=== PATIENT | female | born 1955 | race Caucasian/White ===

== ENCOUNTER 2022-05-25 14:57 | Emergency (ER) | payer MEDICARE, SELFPAY ==
[2022-05-25 15:05] VITALS: BP 140/84; PULSE 78; RESP 20; TEMP 36.2; O2SAT 96; BMI 42.1
--- NOTE | 2022-05-25 15:20 | ED.NURSE ---
Pt resumed use of home oxygen supply at 3L NC while speaking with .
--- NOTE | 2022-05-25 15:22 | ED.NURSE ---
Pt requesting to use hospital O2 while here. Pt came from home with home O2 applied at 3L NC. O2 satting well at ~97% on arrival. Pt trialed down to RA, stable at ~93% on RA. Pt states that even if her O2 sats are good, I'm going to put my oxygen back on if I get uncomfortable. Continues to be on RA at this time.
--- NOTE | 2022-05-25 15:35 | ED.NURSE ---
Pt resumed use of home oxygen supply at 3L NC while speaking with .
--- NOTE | 2022-05-25 15:40 | CRLHL7_ITS ---
For Patients: As a result of the Century Cures Act, medical imaging exams and procedure reports are released immediately into your electronic medical record. You may view this report before your referring provider. If you have questions, please contact your health care provider. INDICATION: Left upper quadrant pain. Question constipation. TECHNIQUE: Supine views of the abdomen, total of 3 images. COMPARISON : None. FINDINGS / IMPRESSION : The bowel gas pattern is nonobstructive. EXTENSIVE volume of colonic stool, localized to the descending and rectosigmoid colon. Findings consistent with constipation. No pathologic abdominal calcifications. Embolization coils noted in the central abdomen. Cholecystectomy surgical clips in the upper right abdomen. Dictated by Billy Blackburn MD @ 05/25/2022 4:36:59 PM Dictated by: Billy Blackburn MD @ 05/25/2022 16:37:07 (Electronically Signed)
[2022-05-25 15:45] VITALS: O2SAT 96
--- NOTE | 2022-05-25 15:45 | ED.ABDPAIN ---
HPI - Abdominal Pain General Chief Complaint: Abdominal Pain Stated Complaint: Hard time breathing, Sharp pain when breathing Time Seen by Provider: 05/25/22 15:18 History of Present Illness HPI narrative: 67-year-old woman presenting to the emergency department accompanied by her [id number] with complaint of left side/abdominal pain. It is sharp in nature and pleuritic and worse with movements as well. She does not recall specific injury. Interview is a pleasant challenge due to tangential conversation, uncertain medical history, mild irritability and agitation and brunson positive review of systems. Ms. Grayson describes a history of needing oxygen. Arise with a concentrator and is off of oxygen while we try to see what her baseline is. During our interview she is satting about 91%. She is mildly labored and tachypneic. She asks shortly to go back on oxygen after transitioning up and down in the bed which returns for promptly to 94-96%. Apparently is typically on 2 L of oxygen for chronic hypoxia particularly exertional fatigue/hypoxia. She initially says that this is related to her neuropathy. It sounds as though there must be some diagnosis of congestive heart failure she notes she had it filled lower lungs with fluid before. She apparently has not much left the bed over the last 2 weeks with recurrent diarrhea, vomiting and nose bleed as a source of blood that had been concerning at 1 point in the bed. The diarrhea and vomiting apparently has stopped, as has any bleeding, and she has not actually had a bowel movement for 3 days. This left side area pain began about 2 days ago. She has not seen any rash. There was no trauma. She does have Lidoderm patches but has not tried home in this area. She is regularly worrying and rubbing the area of pain in question at the left anterolateral rib margin and surrounding area. She also notes a history of 2 aneurysms Related Data Home Medications Medication Instructions Recorded Confirmed albuterol sulfate 2.5 mg/3 mL mg 05/25/22 (0.083 %) solution for nebulization amlodipine 5 mg tablet mg 05/25/22 atorvastatin 20 mg tablet mg 05/25/22 fluticasone fur. 100 mcg-umeclid inhalation 05/25/22 62.5 mcg-vilant 25 mcg inhalat.powder (Trelegy Ellipta) furosemide 40 mg tablet mg 05/25/22 insulin aspart U-100 100 unit/mL subcut 05/25/22 (3 mL) subcutaneous pen insulin degludec 200 unit/mL (3 unit subcut 05/25/22 mL) subcutaneous pen (Tresiba FlexTouch U-200 insulin) pregabalin 50 mg capsule mg 05/25/22 Previous Rx's Medication Instructions Recorded cefdinir 300 mg capsule 300 mg PO Q12H 9 days #18 caps 05/25/22 Allergies Allergy/AdvReac Type Severity Reaction Status Date / Time No Known Drug Allergies Allergy Verified 05/25/22 15:11 Review of Systems Narrative 10+ point review of systems is done and challenged by brunson positive nature. Exam Narrative: Exam Narrative: Pleasantly disagreeable at times. Tangential. Cranial nerves 2-12 intact. Fully alert. Little agitated, distracted. Lungs with equal expansion excursion. Is splinting a little bit with deep inspiratory effort. Lungs actually appear to be clear. Mildly labored in breathing Oropharynx is dry. I do not appreciate any blood dried or otherwise apparent at the naris. Neck is supple without lymphadenopathy. Cardiovascular with regular rate and rhythm. Distant. Extremities are without edema. No tenderness to palpation. Abdomen is overweight soft normoactive bowel sounds. She is quite tender at the left anterior lateral rib margin and a up the ribs in that area as well as into the abdomen in that area. No masses are appreciated. No HSM. Shortly after initial exam she is requesting to return to her oxygen concentrator. I had assessed her initially with oxygen off Const: Vital Signs, click to edit/add: Vital Signs - 24 hr 05/25/22 15:05 05/25/22 15:45 05/25/22 16:00 Temperature 97.1 F L Pulse Rate [Right Pulse Oximeter] 78 70 Respiratory Rate 20 Blood Pressure [Ri ght Upper Arm] 140/84 H Pulse Oximetry 96 96 95 Oxygen Delivery Me thod Room Air Nasal Cannula Oxygen Flow Rate 3 05/25/22 16:30 05/25/22 19:00 05/25/22 16:00 Temperature Pulse Rate [Right Pulse Oximeter] 64 71 Respiratory Rate Blood Pressure [Ri ght Upper Arm] Pulse Oximetry 97 99 97 Oxygen Delivery Me thod Nasal Cannula Nasal Cannula Nasal Cannula Oxygen Flow Rate 2 2 2 Documenting provider has reviewed patient's vital signs: yes Course Consultations Consultation #2: Returned to find Ms. Prior sleeping. Apparently pain has improved. Fluids are in antibiotics as well. Moving towards discharge. Vital Signs Vital signs: Initial Vital Signs Temperature 97.1 F L 05/25/22 15:05 Temperature Source Temporal Artery Scan 05/25/22 15:05 Pulse Rate 78 05/25/22 15:05 Respiratory Rate 20 05/25/22 15:05 Blood Pressure 140/84 H 05/25/22 15:05 Blood Pressure Mean 102 05/25/22 15:05 Blood Pressure Position Sitting 05/25/22 15:05 Pulse Oximetry 96 05/25/22 15:05 Oxygen Delivery Method 05/25/22 15:05 Vital Signs Temperature 97.1 F L 05/25/22 15:05 Pulse Rate 78 05/25/22 15:05 Respiratory Rate 20 05/25/22 15:05 Blood Pressure 140/84 H 05/25/22 15:05 Pulse Oximetry 96 05/25/22 15:05 Oxygen Delivery Method 05/25/22 15:05 Temperature 97.1 F L 05/25/22 15:05 Pulse Rate 71 05/25/22 19:00 Respiratory Rate 20 05/25/22 15:05 Blood Pressure 140/84 H 05/25/22 15:05 Pulse Oximetry 99 05/25/22 19:00 Oxygen Delivery Method 05/25/22 19:00 Oxygen Flow Rate 2 05/25/22 19:00 MDM - Abdominal Pain MDM Narrative Medical decision making narrative: I would think that the pendulum has swelling towards constipation but I do not believe that that can explain all of her symptoms. We will look for red flags in labs. Abdomen x-ray. Further imaging is necessary. Given reproducible pain at the rib margin I do trial a Lidoderm patch. She does note that she has them at home as well. By my read abdominal x-ray does identify great deal of colonic stool. I think this is likely the reason for the abdominal pain in the left upper quadrant. Elevated D-dimer, pleuritic pain, hypoxia prompt CT scan of chest with PE protocol. I do review these images. Radiology over-read is below IMPRESSION: 1. No evidence of acute PE. 2. Mild heterogeneous ground-glass opacities predominating in the posterior right upper lobe, suspicious for pneumonitis or atypical infection. Urinalysis suspicious for urinary tract infection. I have ordered for Rocephin here in the emergency department. This would begin to also addresses process in her lungs Lab Data Attestation: I reviewed the patient's lab results. Labs: Lab Results 05/25/22 05/25/22 05/25/22 Range/Units 15:05 15:45 15:45 WBC 12.51 H (4.50-11.00) K/uL RBC 4.67 (4.00-5.20) m/uL Hgb 11.9 L (12.0-16.0) gm/dL Hct 38.1 (33.0-51.0) % MCV 82 (80-100) fL MCH 26 (26-34) pg MCHC 31 L (32-36) gm/dL RDW Coeff of Sonia 14.8 (11.5-15.5) % Plt Count 464 H (140-440) K/uL Neut % (Auto) 66.3 (42.0-72.0) % Lymph % (Auto) 24.2 (20-44) % [place] % (Auto) 5.4 (0.0-11.0) % Eos % (Auto) 2.8 (0.0-7.0) % Baso % (Auto) 0.6 (0.0-3.0) % Neut # (Auto) 8.30 H (1.7-7.0) K/uL Lymph # (Auto) 3.00 H (0.90-2.90) K/uL [place] # (Auto) 0.70 (0.00-0.90) K/UL Eos # (Auto) 0.40 (0.00-0.50) K/uL Baso # (Auto) 0.10 (0.00-0.30) K/uL Abs Immat Gran (auto) 0.10 (0.00-0.30) K/uL Imm/Tot Granulo (auto) 0.7 % D-Dimer Quant (PE/DVT) 1.04 H (0.00-0.50) ug/ml Sodium (135-149) mmol/L Potassium (3.6-5.1) mmol/L Chloride (96-114) mmol/L Carbon Dioxide (20-32) mmol/L BUN (7-30) mg/dL Creatinine (0.5-1.5) mg/dL Estimated Creat Clear Estimated GFR ml/min Glucose (60-115) mg/dL Calcium (8.4-10.6) mg/dL Total Bilirubin (0.1-1.5) mg/dL Direct Bilirubin (0.0-0.5) mg/dL AST (12-35) U/L ALT (4-35) U/L Alkaline Phosphatase (40-150) U/L Troponin I (0.01-0.04) ng/mL C-Reactive Protein (0.5-1.0) mg/dL NT-Pro-B Natriuret Pep (0-125) PG/mL Total Protein (6.0-8.3) g/dL Albumin (3.3-5.0) g/dL Urine Color (Yellow) Urine Appearance (Clear) Urine pH (5.0-8.5) Ur Specific [place] (1.000-1.030) Urine Protein (Negative) Urine Glucose (UA) (Negative) Urine Ketones (Negative) Urine Blood (Negative) Urine Nitrite (Negative) Urine Bilirubin (Negative) Urine Urobilinogen (0.2-1.0) Ur Leukocyte Esterase (Negative) Urine RBC (0-2) Urine WBC (0-5) Ur Squamous Epith Cells (None-Few) Urine Bacteria (None) SARS-CoV-2 (PCR) Negative SARS-CoV-2 (Negative) Influenza Type A (PCR) Negative PCR FLU A (Negative) Influenza Type B (PCR) Negative PCR FLU B (Negative) RSV (PCR) Negative PCR RSV (Negative) 05/25/22 05/25/22 05/25/22 Range/Units 15:45 15:45 16:45 WBC (4.50-11.00) K/uL RBC (4.00-5.20) m/uL Hgb (12.0-16.0) gm/dL Hct (33.0-51.0) % MCV (80-100) fL MCH (26-34) pg MCHC (32-36) gm/dL RDW Coeff of Sonia (11.5-15.5) % Plt Count (140-440) K/uL Neut % (Auto) (42.0-72.0) % Lymph % (Auto) (20-44) % [place] % (Auto) (0.0-11.0) % Eos % (Auto) (0.0-7.0) % Baso % (Auto) (0.0-3.0) % Neut # (Auto) (1.7-7.0) K/uL Lymph # (Auto) (0.90-2.90) K/uL [place] # (Auto) (0.00-0.90) K/UL Eos # (Auto) (0.00-0.50) K/uL Baso # (Auto) (0.00-0.30) K/uL Abs Immat Gran (auto) (0.00-0.30) K/uL Imm/Tot Granulo (auto) % D-Dimer Quant (PE/DVT) (0.00-0.50) ug/ml Sodium 136 (135-149) mmol/L Potassium 4.6 (3.6-5.1) mmol/L Chloride 93 L (96-114) mmol/L Carbon Dioxide 31 (20-32) mmol/L BUN 11 (7-30) mg/dL Creatinine 0.5 (0.5-1.5) mg/dL Estimated Creat Clear 43.77 Estimated GFR 103 ml/min Glucose 350 H (60-115) mg/dL Calcium 9.1 (8.4-10.6) mg/dL Total Bilirubin 0.2 (0.1-1.5) mg/dL Direct Bilirubin 0.1 (0.0-0.5) mg/dL AST 17 (12-35) U/L ALT 15 (4-35) U/L Alkaline Phosphatase 166 H (40-150) U/L Troponin I < 0.01 L (0.01-0.04) ng/mL C-Reactive Protein 5.4 H (0.5-1.0) mg/dL NT-Pro-B Natriuret Pep 145 H (0-125) PG/mL Total Protein 7.1 (6.0-8.3) g/dL Albumin 4.1 (3.3-5.0) g/dL Urine Color Yellow (Yellow) Urine Appearance Clear (Clear) Urine pH 5.0 (5.0-8.5) Ur Specific [place] 1.025 (1.000-1.030) Urine Protein Negative (Negative) Urine Glucose (UA) 2+ A (Negative) Urine Ketones Trace A (Negative) Urine Blood Negative (Negative) Urine Nitrite Negative (Negative) Urine Bilirubin Negative (Negative) Urine Urobilinogen 0.2 (0.2-1.0) Ur Leukocyte Esterase Trace A (Negative) Urine RBC 0-2 (0-2) Urine WBC 25-50 A (0-5) Ur Squamous Epith Cells Few (None-Few) Urine Bacteria Few A (None) SARS-CoV-2 (PCR) (Negative) Influenza Type A (PCR) (Negative) Influenza Type B (PCR) (Negative) RSV (PCR) (Negative) ECG Data Attestation: I personally reviewed and interpreted this ECG as follows: (Normal sinus rhythm rate of 68. Good deal of interference -- patient not wanting to set still) Discharge Plan Discharge Clinical Impression: Urinary tract infection, Abdominal pain, Pneumonia, Constipation, Pneumonitis Patient Disposition: Home w/ Parent or Adult Condition: Improved Additional Instructions: I do think getting your bowels working again should help your abdominal pain. I would take 3 dosings of MiraLax equivalent of 1 tbsp each in 8 oz of liquid by noon over the next few days adjusting then to stool consistency. You can also try a senna containing product to improve bowel squeeze taking that 1-2 tabs daily and once things are working well stopping it -- consider trying Senokot-S (or Docusate-S). Magnesium citrate might be another option to try in lieu of MiraLax drinking 1 bottle and repeating next day if no good result - this can be a more potent/effective bowel cleanout. If you are having rather hard stools do not forget the placement of an enema can be helpful and repeat in an hour if no good result. Be sure to hydrate well with water. Return for increasing weakness and worsening shortness of breath particularly if with fever, persistent and increasing abdominal pain. A urine culture will be pending here. Watch your blood sugars closely. The antibiotic cefdinir was sent to your pharmacy. This should not cause so much trouble with your guts. I would follow up in 2 weeks for consideration of repeat imaging focusing on your right upper chest given what we see here; looking for resolution. Take this copy of radiology read and images with you as you often receive care in another location. You do not need to take any more antibiotics tonight. Prescriptions: New cefdinir 300 mg capsule 300 mg PO Q12H 9 Days Qty: 18 0RF No Action furosemide 40 mg tablet atorvastatin 20 mg tablet albuterol sulfate 2.5 mg /3 mL (0.083 %) solution for nebulization Label Comments: INHALE 1 VIAL VIA NEBULIZER EVERY 4 HOURS NEEDED amlodipine 5 mg tablet insulin aspart U-100 100 unit/mL (3 mL) insulin pen SUBCUT pregabalin 50 mg capsule insulin degludec [Tresiba FlexTouch U-200] 200 unit/mL (3 mL) insulin pen SUBCUT Trelegy Ellipta 100-62.5-25 mcg blister with device INHALATION Follow Up/Referrals: Provider,Not a Local [Primary Care Provider] - Stand Alone Forms: [facility] Info Inst[facility]
[2022-05-25] MEDS: LIDOCAINE 5% PATCH 1 PATCH TRANSDERMA (15:56)
[2022-05-25 15:57] LABS: Basophils Percent Auto 0.6 % (0.0-3.0); Eosinophils Percent Auto 2.8 % (0.0-7.0); Hematocrit 38.1 % (33.0-51.0); Hemoglobin* 11.9 gm/dL (12.0-16.0); Immature Granulocytes Pct Auto 0.7 %; Lymphocytes Percent Auto 24.2 % (20-44); Mean Corpuscular HGB Conc 31 gm/dL (32-36); Mean Corpuscular Hemoglobin 26 pg (26-34); Mean Corpuscular Volume 82 fL (80-100); Monocytes Percent Auto 5.4 % (0.0-11.0); Neutrophils Percent Auto 66.3 % (42.0-72.0); Platelet Count* 464 K/uL (140-440); RDW Coefficient of Variation % 14.8 % (11.5-15.5); Red Blood Count 4.67 m/uL (4.00-5.20); White Blood Count* 12.51 K/uL (4.50-11.00)
[2022-05-25 15:59] LABS: PCR FLU A Negative PCR FLU A (Negative); PCR FLU B Negative PCR FLU B (Negative); PCR RSV Negative PCR RSV (Negative)
[2022-05-25 15:59] LABS: Slide Review Reflex No
[2022-05-25 16:00] VITALS: PULSE 70; O2SAT 95; O2SAT 97
[2022-05-25 16:00] LABS: SARS PCR* Negative SARS-CoV-2 (Negative)
[2022-05-25 16:09] LABS: Chloride* 93 mmol/L (96-114); Potassium* 4.6 mmol/L (3.6-5.1); Sodium* 136 mmol/L (135-149)
[2022-05-25 16:10] LABS: Albumin* 4.1 g/dL (3.3-5.0)
[2022-05-25 16:12] LABS: Creatinine* 0.5 mg/dL (0.5-1.5); Est. Creatinine Clearance* 43.77; Estimated Glomerular Filt Rate 103 ml/min
[2022-05-25 16:13] LABS: Aspartate Amino Transferase* 17 U/L (12-35); Bilirubin Direct* 0.1 mg/dL (0.0-0.5); Bilirubin Total* 0.2 mg/dL (0.1-1.5); Blood Urea Nitrogen* 11 mg/dL (7-30); Calcium* 9.1 mg/dL (8.4-10.6); Carbon Dioxide* 31 mmol/L (20-32); Glucose* 350 mg/dL (60-115); Total Protein* 7.1 g/dL (6.0-8.3)
[2022-05-25 16:14] LABS: Alanine Aminotransferase* 15 U/L (4-35); Alkaline Phosphatase* 166 U/L (40-150)
[2022-05-25 16:15] LABS: C Reactive Protein* 5.4 mg/dL (0.5-1.0); D Dimer Quantitative* 1.04 ug/ml (0.00-0.50)
[2022-05-25 16:22] LABS: NT Pro B Type NatriureticPept* 145 PG/mL (0-125)
--- NOTE | 2022-05-25 16:24 | ED.NURSE ---
Per , okay to transition pt from home O2 supply to ER O2 supply. Pt home O2 supply low on batteries and pt still wanting to be on O2 NC. Pt placed on 2L O2 NC.
[2022-05-25] MEDS: 0.9 % SODIUM CHLORIDE 500 ML 500 ML IV ×2 (16:25→18:53)
[2022-05-25 16:26] LABS: Troponin I* < 0.01 ng/mL (0.01-0.04)
[2022-05-25 16:30] VITALS: PULSE 64; O2SAT 97
--- NOTE | 2022-05-25 16:35 | CRLHL7_ITS ---
For Patients: As a result of the Century Cures Act, medical imaging exams and procedure reports are released immediately into your electronic medical record. You may view this report before your referring provider. If you have questions, please contact your health care provider. INDICATION: Left-sided pleuritic chest pain. TECHNIQUE: CT chest pulmonary angiogram acquired with IV contrast, 95mL of Isovue 370. Coronal and sagittal reformats. COMPARISON: None available. FINDINGS: The central airways are patent. Mild heterogeneous ground-glass opacities predominating in the posterior right upper lobe. Clustered small irregular noncalcified nodules in the paramediastinal left upper lobe. No pneumothorax or pleural effusion. No pulmonary arterial filling defect identified. Normal cardiac size. Coronary artery calcifications. No pericardial effusion. The thoracic aorta is patent and normal caliber with mild atherosclerotic changes. Multiple prominent subcentimeter mediastinal lymph nodes. The imaged upper abdomen demonstrates cholecystectomy clips. Schmorl`s node involving the T12 superior endplate with mild anterior vertebral height loss. No suspicious osseous lesion. IMPRESSION: 1. No evidence of acute PE. 2. Mild heterogeneous ground-glass opacities predominating in the posterior right upper lobe, suspicious for pneumonitis or atypical infection. Dictated by Noah Roberson MD @ 05/25/2022 5:30:13 PM Please note that all CT scans at this facility use dose modulation, iterative reconstruction, and/or weight-based dosing when appropriate to reduce radiation dose to as low as reasonably achievable. Dictated by: Noah Roberson MD @ 05/25/2022 17:30:18 (Electronically Signed)
[2022-05-25 16:53] LABS: Appearance Urine Clear (Clear); Bilirubin Urine Negative (Negative); Blood Urine Negative (Negative); Color Urine Yellow (Yellow); Glucose Urine 2+ (Negative); Ketones Urine Trace (Negative); Leukocyte Esterase Urine Trace (Negative); Nitrite Urine Negative (Negative); Protein Urine Negative (Negative); Specific Gravity Urine 1.025 (1.000-1.030); Urobilinogen Urine 0.2 (0.2-1.0)
[2022-05-25 17:05] LABS: RBC Urine 0-2 (0-2); Squamous Epithelial Cell Urine Few (None-Few); WBC Urine 25-50 (0-5)
[2022-05-25 17:06] LABS: Bacteria Urine Few
[2022-05-25] MEDS: cefTRIAXone 1 GM in 0.9 % SODIUM CHLORIDE Mini-bag 100 ML IVPB (17:34)
[2022-05-25 19:00] VITALS: PULSE 71; O2SAT 99
== END 2022-05-25 19:17 | disposition home or self-care (01) ==
PROVIDERS: Emergency Provider Family Medicine
DX: N39.0 Urinary tract infection, site not specified (principal); R10.9 Unspecified abdominal pain; J18.9 Pneumonia, unspecified organism
CPT/HCPCS: 36415; 71260; 74018; 80048; 80076; 81001; 83880; 84484; 85025; 85379; 86140; 87086; 87186; 87502; 87634; 87635; 93005; 94761; 96361; 96365; 99284; 99285; A9270; J0696; J7120; Q9967